=== PATIENT | female | born 1980 | race Caucasian/White ===

== ENCOUNTER → 2017-06-27 | Outpatient (CLI) | payer OTHER | LOC: M SMT 08:14 | PROVIDERS: ATTEND Obstetrics & Gynecology | DX: Z32.01 Encounter for pregnancy test, result positive (principal) ==

== ENCOUNTER → 2017-06-29 | Outpatient (CLI) | payer OTHER | LOC: M SMT 08:08 | PROVIDERS: ATTEND Obstetrics & Gynecology | DX: Z32.01 Encounter for pregnancy test, result positive (principal) ==

== ENCOUNTER → 2017-08-13 | Outpatient (CLI) | payer OTHER ==
[2017-08-13 21:06] LABS: BASO % 0.5 % (0.0-1.0); EOS # 0.1 10^3/uL (0.0-0.50); EOS % 2.2 % (0.0-3.0); IMMATURE GRANULOCYTE % 0.3 % (0-0); LYMPH # 1.4 10^3/uL (1.5-4.5); LYMPH % 21.5 % (24.0-44.0); MEAN CORPUSCULAR HEMOGLOBIN 31.2 pg (27.0-33.0); MEAN CORPUSCULAR HGB CONC 33.5 g/dl (32.0-36.5); MONO # 0.5 10^3/uL (0.0-0.8); MONO % 8.2 % (0.0-5.0); NEUTROPHILS # 4.3 10^3/uL (1.8-7.7); NEUTROPHILS % 67.3 % (36.0-66.0); PLATELET COUNT, AUTOMATED 178 10^3/uL (150-450); WHITE BLOOD COUNT 6.4 10^3/uL (4.0-10.0)
[2017-08-15 11:07] LABS: HBsAg Prenatal NEGATIVE (NEGATIVE)
== END ==
LOC: M LRY 16:15
PROVIDERS: ATTEND Obstetrics & Gynecology
DX: Z34.81 Encounter for supervision of other normal pregnancy, first trimester (principal); Z3A.01 Less than 8 weeks gestation of pregnancy

== ENCOUNTER → 2017-09-28 | Outpatient (CLI) | payer OTHER ==
[2017-09-28 13:10] LABS: BASO % 0.4 % (0.0-1.0); EOS # 0.1 10^3/uL (0.0-0.50); EOS % 1.1 % (0.0-3.0); IMMATURE GRANULOCYTE # 0.1 10^3/uL (0-0); IMMATURE GRANULOCYTE % 0.8 % (0-0); LYMPH % 13.4 % (24.0-44.0); MEAN CORPUSCULAR HEMOGLOBIN 30.9 pg (27.0-33.0); MEAN CORPUSCULAR VOLUME 93.9 fl (80.0-96.0); MONO # 0.6 10^3/uL (0.0-0.8); MONO % 7.8 % (0.0-5.0); NEUTROPHILS # 5.8 10^3/uL (1.8-7.7); NEUTROPHILS % 76.5 % (36.0-66.0); PLATELET COUNT, AUTOMATED 119 10^3/uL (150-450); RED CELL DISTRIBUTION WIDTH 13.2 % (11.5-14.5); WHITE BLOOD COUNT 7.6 10^3/uL (4.0-10.0)
== END ==
LOC: M SMT 11:16
DX: D69.6 Thrombocytopenia, unspecified (principal)
CPT/HCPCS: 85025

== ENCOUNTER → 2017-11-01 | Outpatient (CLI) | payer OTHER ==
[2017-11-01 16:23] LABS: BASO % 0.3 % (0.0-1.0); EOS # 0.1 10^3/uL (0.0-0.50); EOS % 0.9 % (0.0-3.0); HEMATOCRIT 36.2 % (36.0-47.0); HEMOGLOBIN 11.8 g/dl (12.0-16.0); IMMATURE GRANULOCYTE # 0.1 10^3/uL (0-0); IMMATURE GRANULOCYTE % 0.9 % (0-0); LYMPH # 0.9 10^3/uL (1.5-4.5); LYMPH % 13.3 % (24.0-44.0); MEAN CORPUSCULAR HEMOGLOBIN 30.6 pg (27.0-33.0); MEAN CORPUSCULAR HGB CONC 32.6 g/dl (32.0-36.5); MEAN CORPUSCULAR VOLUME 93.8 fl (80.0-96.0); MONO # 0.5 10^3/uL (0.0-0.8); MONO % 7.5 % (0.0-5.0); NEUTROPHILS # 5.1 10^3/uL (1.8-7.7); NEUTROPHILS % 77.1 % (36.0-66.0); RED BLOOD COUNT 3.86 10^6/uL (4.00-5.40); RED CELL DISTRIBUTION WIDTH 13.3 % (11.5-14.5); WHITE BLOOD COUNT 6.6 10^3/uL (4.0-10.0)
[2017-11-01 17:31] LABS: PLATELET COUNT, AUTOMATED 92 10^3/uL (150-450)
== END ==
LOC: M SMT 08:10
DX: D69.6 Thrombocytopenia, unspecified (principal)

== ENCOUNTER → 2017-11-23 | Outpatient (CLI) | payer OTHER ==
[2017-11-23 14:17] LABS: HEMATOCRIT 34.5 % (36.0-47.0); HEMOGLOBIN 11.3 g/dl (12.0-16.0); MEAN CORPUSCULAR HEMOGLOBIN 30.3 pg (27.0-33.0); MEAN CORPUSCULAR HGB CONC 32.8 g/dl (32.0-36.5); MEAN CORPUSCULAR VOLUME 92.5 fl (80.0-96.0); PLATELET COUNT, AUTOMATED 108 10^3/uL (150-450); RED BLOOD COUNT 3.73 10^6/uL (4.00-5.40); RED CELL DISTRIBUTION WIDTH 12.9 % (11.5-14.5); WHITE BLOOD COUNT 7.8 10^3/uL (4.0-10.0)
[2017-11-23 14:37] LABS: GLUCOSE CHALLENGE TEST 1 HOUR 76 MG/DL (LESS THAN 140)
== END ==
LOC: M SMT 10:02
DX: O34.211 Maternal care for low transverse scar from previous cesarean delivery (principal)
CPT/HCPCS: 82950

== ENCOUNTER → 2017-12-28 | Outpatient (CLI) | payer OTHER ==
[2017-12-28 14:29] LABS: BASO % 0.4 % (0.0-1.0); EOS # 0.1 10^3/uL (0.0-0.50); HEMATOCRIT 33.2 % (36.0-47.0); HEMOGLOBIN 10.6 g/dl (12.0-15.5); IMMATURE GRANULOCYTE % 0.6 % (0-3.0); LYMPH # 1.1 10^3/uL (1.5-4.5); LYMPH % 13.6 % (24.0-44.0); MEAN CORPUSCULAR HEMOGLOBIN 28.6 pg (27.0-33.0); MEAN CORPUSCULAR HGB CONC 31.9 g/dl (32.0-36.5); MEAN CORPUSCULAR VOLUME 89.7 fl (80.0-96.0); MONO # 0.8 10^3/uL (0.0-0.8); MONO % 10.5 % (0.0-5.0); NEUTROPHILS # 5.8 10^3/uL (1.8-7.7); NEUTROPHILS % 73.9 % (36.0-66.0); PLATELET COUNT, AUTOMATED 137 10^3/uL (150-450); RED CELL DISTRIBUTION WIDTH 12.8 % (11.5-14.5); WHITE BLOOD COUNT 7.8 10^3/uL (4.0-10.0)
== END ==
LOC: M SMT 11:45
DX: D69.6 Thrombocytopenia, unspecified (principal)
CPT/HCPCS: 85025

== ENCOUNTER → 2018-01-28 | Outpatient (CLI) | payer OTHER ==
[2018-01-28 12:19] LABS: BASO % 0.3 % (0.0-1.0); EOS # 0.1 10^3/uL (0.0-0.50); HEMATOCRIT 31.9 % (36.0-47.0); HEMOGLOBIN 10.1 g/dl (12.0-15.5); IMMATURE GRANULOCYTE % 0.9 % (0-3.0); LYMPH # 0.9 10^3/uL (1.5-4.5); MEAN CORPUSCULAR HGB CONC 31.7 g/dl (32.0-36.5); MEAN CORPUSCULAR VOLUME 88.4 fl (80.0-96.0); MONO # 0.7 10^3/uL (0.0-0.8); MONO % 9.4 % (0.0-5.0); NEUTROPHILS # 5.2 10^3/uL (1.8-7.7); NEUTROPHILS % 75.4 % (36.0-66.0); PLATELET COUNT, AUTOMATED 140 10^3/uL (150-450); RED BLOOD COUNT 3.61 10^6/uL (4.00-5.40); RED CELL DISTRIBUTION WIDTH 12.9 % (11.5-14.5); WHITE BLOOD COUNT 6.9 10^3/uL (4.0-10.0)
== END ==
LOC: M SMT 08:12
DX: D69.6 Thrombocytopenia, unspecified (principal)
CPT/HCPCS: 85025

== ENCOUNTER → 2018-02-12 | Outpatient (CLI) | payer OTHER ==
[2018-02-12 13:51] LABS: BASO % 0.3 % (0.0-1.0); EOS % 0.5 % (0.0-3.0); HEMATOCRIT 32.8 % (36.0-47.0); HEMOGLOBIN 10.3 g/dl (12.0-15.5); IMMATURE GRANULOCYTE % 0.5 % (0-3.0); LYMPH % 12.4 % (24.0-44.0); MEAN CORPUSCULAR HGB CONC 31.4 g/dl (32.0-36.5); MEAN CORPUSCULAR VOLUME 86.1 fl (80.0-96.0); MONO # 0.8 10^3/uL (0.0-0.8); MONO % 9.7 % (0.0-5.0); NEUTROPHILS % 76.6 % (36.0-66.0); PLATELET COUNT, AUTOMATED 150 10^3/uL (150-450); RED BLOOD COUNT 3.81 10^6/uL (4.00-5.40); RED CELL DISTRIBUTION WIDTH 13.2 % (11.5-14.5); WHITE BLOOD COUNT 7.9 10^3/uL (4.0-10.0)
== END ==
LOC: M SMT 11:00
DX: D69.3 Immune thrombocytopenic purpura (principal)

== ENCOUNTER → 2018-02-26 | Outpatient (CLI) | payer OTHER ==
[2018-02-26 11:20] LABS: BASO % 0.5 % (0.0-1.0); EOS # 0.1 10^3/uL (0.0-0.50); EOS % 1.1 % (0.0-3.0); HEMATOCRIT 31.3 % (36.0-47.0); HEMOGLOBIN 9.8 g/dl (12.0-15.5); IMMATURE GRANULOCYTE % 0.6 % (0-3.0); LYMPH % 16.3 % (24.0-44.0); MEAN CORPUSCULAR HEMOGLOBIN 26.6 pg (27.0-33.0); MEAN CORPUSCULAR HGB CONC 31.3 g/dl (32.0-36.5); MEAN CORPUSCULAR VOLUME 84.8 fl (80.0-96.0); MONO # 0.6 10^3/uL (0.0-0.8); MONO % 9.3 % (0.0-5.0); NEUTROPHILS # 4.5 10^3/uL (1.8-7.7); NEUTROPHILS % 72.2 % (36.0-66.0); PLATELET COUNT, AUTOMATED 148 10^3/uL (150-450); RED BLOOD COUNT 3.69 10^6/uL (4.00-5.40); RED CELL DISTRIBUTION WIDTH 13.5 % (11.5-14.5); WHITE BLOOD COUNT 6.2 10^3/uL (4.0-10.0)
== END ==
LOC: M SMT 08:06
DX: Z36.89 Encounter for other specified antenatal screening (principal); Z3A.00 Weeks of gestation of pregnancy not specified
CPT/HCPCS: 85025

== ENCOUNTER 2018-03-16 04:50 | Emergency (ER) | payer OTHER | END 2018-03-16 06:30 | disposition home or self-care (01) | LOC: M ED 04:50 | DX: T81.30XA Disruption of wound, unspecified, initial encounter (principal); Y92.9 Unspecified place or not applicable; Y93.9 Activity, unspecified; Z79.899 Other long term (current) drug therapy; Z88.0 Allergy status to penicillin | CPT/HCPCS: 99283 ==

== ENCOUNTER 2019-11-10 11:49 | Emergency (ER) | payer OTHER ==
[~2019-11-10] VITALS: Ht 162.6 cm; Wt 70.9 kg
[~2019-11-10 11:49] MED LIST changes: -CIPR-249 PO; -FLAG500T PO; -GASTROGRAFIN SOLUTION 30ML (Q9963) As Ordered ONE; -ISOVUE-370 76% 100ML VIAL (Q9967) As Ordered ONE; -ZOFR4TAB16 PO
[2019-11-10] MEDS ORDERED: CIPR-249 PO (14:26)
[2019-11-10] MEDS ORDERED: FLAG500T PO (14:28)
[2019-11-10] MEDS ORDERED: ZOFR4TAB16 PO (14:28)
[2019-11-10] MEDS ORDERED: metroNIDAZOLE (FLAGYL) 500 MG TAB PO ONE (14:30)
[2019-11-10] MEDS ORDERED: CIPROFLOXACIN 500 MG TAB PO ONE (14:30)
[2019-11-10 14:34] VITALS: BP 128/83
== END 2019-11-10 14:37 | disposition home or self-care (01) ==
LOC: M ED 11:49
DX: K57.32 Diverticulitis of large intestine without perforation or abscess without bleeding (principal); D69.3 Immune thrombocytopenic purpura; Z88.0 Allergy status to penicillin; Z79.899 Other long term (current) drug therapy

== ENCOUNTER → 2019-11-10 | Outpatient (CLI) | payer OTHER ==
[~2019-11-10] MED LIST: CIPR-249 PO; CLAR10CA3 PO; COLA100C5 PO; FLAG500T PO; GASTROGRAFIN SOLUTION 30ML (Q9963) As Ordered ONE; IBUP1TAB7 PO; ISOVUE-370 76% 100ML VIAL (Q9967) As Ordered ONE; LANS15CA PO; MULTCAP8 PO; NYST1POW9 TOP; PERCOCET PO; PREN1TAB26 PO; PREV15CA18 PO; ZANT150T40 PO; ZOFR4TAB16 PO
--- NOTE | 2019-11-10 11:23 | REP ---
Clinical: Acute right lower quadrant pain. Technique: Axial contrast enhanced images of the pelvis using oral and 100 ml Isovue 370 intravenous contrast material with coronal and sagittal re-formations. Findings: There is an area of asymmetric mucosal thickening with enhancement and inflammatory change along the posterior base of the cecum (images 20 - 35). Findings suggest possible cecal diverticulitis. The terminal ileum and appendix are identified and normal. No bowel obstruction, free air to suggest perforation, or drainable collection/abscess noted. Further evaluation of the pelvic structures demonstrates normal bladder and age-appropriate uterus/adnexa. No pelvic fluid. No significant adenopathy. Abdominal aorta and vasculature appear normal. Osseous structures are intact. Impression: Findings as described above suggest cecal diverticulitis. Normal terminal ileum and appendix identified. Electronically Signed by Alejandro Cavazos MD 11/10/2019 11:15 A
== END ==
LOC: M RAD 09:22
PROVIDERS: ATTEND Internal Medicine Hematology & Oncology
DX: R10.31 Right lower quadrant pain (principal)
CPT/HCPCS: 72193; Q9963; Q9967

== ENCOUNTER → 2019-11-20 | Outpatient (REF) | payer OTHER ==
[~2019-11-20] MED LIST changes: +CIPR-249 PO; +FLAG500T PO; +ZOFR4TAB16 PO
== END ==
LOC: M LAB REF 12:22
PROVIDERS: ATTEND Registered Nurse
DX: K57.92 Diverticulitis of intestine, part unspecified, without perforation or abscess without bleeding (principal)

== ENCOUNTER → 2019-12-03 | Outpatient (REF) | payer OTHER | LOC: M PLALAB 10:25 | PROVIDERS: ATTEND Obstetrics & Gynecology | DX: Z12.4 Encounter for screening for malignant neoplasm of cervix (principal); B37.9 Candidiasis, unspecified | CPT/HCPCS: 87624; G0123 ==

== ENCOUNTER → 2021-07-14 | Outpatient (CLI) | payer OTHER ==
[~2021-07-14] MED LIST changes: +OMEP-221 PO; -PREV15CA18 PO; +PREV15CA24 PO; +VITMTA PO
== END ==
LOC: M LABSMTC 10:20
PROVIDERS: ATTEND Anesthesiology
DX: Z01.812 Encounter for preprocedural laboratory examination (principal); Z20.822 Contact with and (suspected) exposure to COVID-19

== ENCOUNTER 2021-07-19 06:39 | Day surgery (SDC) | payer OTHER ==
[~2021-07-19] VITALS: Ht 162.6 cm; Wt 68.5 kg
[~2021-07-19 06:39] MED LIST changes: +NS 1,000 ML IV ONE
--- OUTSIDE RECORDS SUMMARY | 2021-07-19 06:43 | CCD | Continuity of Care Document ---
Author Author Dee DAVILA Organization Unknown Address [address] [address] Phone [phone] Care Team Providers Care New Car Sales Manager Name Role Phone Bárbara Davila AUTM [phone] Problems Description No Information Available Social History Type Date Description Comments Sex Unknown ETOH Use Occasionally consumes alcohol Tobacco Use Start: Unknown Patient has never smoked Allergies and adverse reactions Active Allergies Criticality Reaction | Severity Comments Date Penicillins Unable to assess criticality Contact dermatitis 02/02/2017 Medications Active Medications SIG Qnty Indications Ordering Provide r Date Omeprazole 40mg Capsules DR 1 by mouth every day 90caps MARSHALL Cruz JR 021 Multivitamin Gummies Womens Chewt abs 1 by mouth every day LAURIE Segovia 11/23/2017 Claritin 10mg Tablets 1 by mouth every day 90tabs LAURIE Segovia 11/23/2017 Ventolin HFA 108(90Base) mcg/Act A erosol 2 puffs every 4 hours as needed for shortness of breath, or cough 3units J45.20 LAURIE Segovia 11/23/2017 Immunizations CPT Code Status Date Vaccine Lot # U-Flu Given 08/11/2020 Influenza,Unspecified Vital Signs Date Vital Result Comment 02/08/2021 9:34am BP Systolic 122 mmHg BP Diastolic 70 mmHg Heart Rate 72 /min Height 64.25 inches 5'4.25" Weight 154.00 lb BMI (Body Mass Index) 26.2 kg/m2 11/01/2020 1:40pm BP Systolic 108 mmHg RT Arm BP Diastolic 60 mmHg RT Arm Heart Rate 96 /min Height 64.25 inches 5'4.25" Weight 155.00 lb BMI (Body Mass Index) 26.4 kg/m2 Results Test Acquired Date Facility Test Result H/L Range Note Coronavirus 2019 Nasopharygeal 07/14/2021 [address] [place] [address] [phone] Coronavirus 2019 Nasopharygeal ASSAY INFORMATIO <SEE N OTE> 1 1 ASSAY INFORMATION: Real Time RT-PCR NOTE: The COVID-19 assay has been cleared by the U.S. Food and Drug Administration under the Emergency Use Authorization (EUA). [facility] are designated as high complexity laboratories by the Clinical Laboratory Improvement Amendments of 1988(CLIA) and are qualified to perform this test. Not Detected Procedures Date Code Description Status 02/08/2021 46584 Office/Outpatient Established Mo d MDM 30-39 Min Completed 02/08/2021 05166 EKG/Interpretation & Report Comp leted 02/22/2017 [id number] Mammogram Completed Medical Devices Description No Information Available Encounters Type Date Location Provider Dx Diagnosis Office Visit 02/08/2021 9:40a [facility] Beny MARSHALL Mcduffie JR K21.9 Gastro-esophageal reflux dis ease without esophagitis R10.13 Epigastric pain R11.0 Nausea R14.0 Abdominal distension (gaseou s) Assessments Date Code Description Provider 02/08/2021 K21.9 Gastro-esophageal reflux disease without esophagitis MARSHALL Cruz JR 02/08/2021 R10.13 Epigastric pain MARSHALL Cortez JR 02/08/2021 R11.0 Nausea MARSHALL Cortez JR 02/08/2021 R14.0 Abdominal distension (gaseous) R MARSHALL Perez JR Plan of Treatment Future Appointment(s):* 11/04/2021 7:40 am - Lab Schedule at [facility] * 11/07/2021 8:00 am - LAURIE Novoa at [facility] 02/08/2021 - MARSHALL Cruz JR* K21.9 Gastro-esophageal reflux disease without esophagitis* Comments:* Will trial 40mg Omeprazole daily, refer for endoscopy, decrease caffeine and wine consumption, increase PO fluids, continue vegetables and lean meats, RTC PRN after endoscopy, possible residual COVID side effect * R10.13 Epigastric pain* Comments:* EKG pending dictation, appeared NSR on wet read * R11.0 Nausea* Comments:* Advised omeprazole, recommendations above, endoscopy ordered * R14.0 Abdominal distension (gaseous)* Comments:* gas x prn, consider colonoscopy in future if symptoms do not resolve, refer Dr Rich * All * New Medication:* Omeprazole 40 mg - 1 by mouth every day Functional Status Description No Information Available Mental Status Description No Information Available Referrals Refer to Reason for Referral Status Appt Date Tushar Rich MD CONSULT FOR SCREENING EGD DX: GERD, VO MITING Patient Notified 03/21/2021 [facility] [address], [address] [place] [address] [phone]
--- OUTSIDE RECORDS SUMMARY | 2021-07-19 06:43 | CCD ---
Author Author [facility] Organization [facility] Address Unknown Phone Unavailable Care Team Providers Care Skid [employer] Worker Name Role Phone Lola, Bárbara RAIL TRACK LAYER Unavailable Unavailable Lola, Bárbara RAIL TRACK LAYER Unavailable Unavailable Lola, Bárbara RAIL TRACK LAYER Unavailable Unavailable Lola, Bárbara RAIL TRACK LAYER Unavailable Unavailable Lola, Bárbara RAIL TRACK LAYER Unavailable Unavailable Lola, Bárbara RAIL TRACK LAYER Unavailable Unavailable Lola, Bárbara RAIL TRACK LAYER Unavailable Unavailable Lola, Bárbara RAIL TRACK LAYER Unavailable Unavailable Lola, Bárbara RAIL TRACK LAYER Unavailable Unavailable Lola, Bárbara RAIL TRACK LAYER Unavailable Unavailable Lola, Ábrbara RAIL TRACK LAYER Unavailable Unavailable Lola, Bárbara RAIL TRACK LAYER Unavailable Unavailable Lola, Bárbara RAIL TRACK LAYER Unavailable Unavailable Lola, Bárbara RAIL TRACK LAYER Unavailable Unavailable Lola, Bárbara RAIL TRACK LAYER Unavailable Unavailable Lola, Bárbara RAIL TRACK LAYER Unavailable Unavailable Lola, Bárbara RAIL TRACK LAYER Unavailable Unavailable Lola, Bárbara RAIL TRACK LAYER Unavailable Unavailable Lola, Bárbara RAIL TRACK LAYER Unavailable Unavailable Lola, Bárbara RAIL TRACK LAYER Unavailable Unavailable Lola, Bárbara RAIL TRACK LAYER Unavailable Unavailable Lola, Bárbara RAIL TRACK LAYER Unavailable Unavailable Lola, Bárbara RAIL TRACK LAYER Unavailable Unavailable Lola, Bárbara RAIL TRACK LAYER Unavailable Unavailable Lola, Bárbara RAIL TRACK LAYER Unavailable Unavailable Lola, Bárbara RAIL TRACK LAYER Unavailable Unavailable Lola, Bárbara RAIL TRACK LAYER Unavailable Unavailable Lola, Bárbara RAIL TRACK LAYER Unavailable Unavailable Lola, Bárbara RAIL TRACK LAYER Unavailable Unavailable Lola, Bárbara RAIL TRACK LAYER Unavailable Unavailable Lola, Bárbara RAIL TRACK LAYER Unavailable Unavailable Lola, Bárbara RAIL TRACK LAYER Unavailable Unavailable Lola, Bárbara RAIL TRACK LAYER Unavailable Unavailable Lola, Bárbara RAIL TRACK LAYER Unavailable Unavailable Lola, Bárbara RAIL TRACK LAYER Unavailable Unavailable SHAYE, O JAYDON MD Unavailable Unavailable SHAYE, O JAYDON MD Unavailable Unavailable SHAYE, O JAYDON MD Unavailable Unavailable SHAYE, O JAYDON MARTINEZ Unavailable Unavailable SHAYE, O JAYDON MARTINEZ Unavailable Unavailable SHAYE, O JAYDON MARTINEZ Unavailable Unavailable SHAYE, O JAYDON MARTINEZ Unavailable Unavailable SHAYE, O JAYDON MARTINEZ Unavailable Unavailable SHAYE, O JAYDON MARTINEZ Unavailable Unavailable SHAYE, O JAYDON MARTINEZ Unavailable Unavailable SHAYE, O JAYDON MARTINEZ Unavailable Unavailable SHAYE, O JAYDON MARTINEZ Unavailable Unavailable SHAYE, O JAYDON MARTINEZ Unavailable Unavailable SHAYE, O JAYDON MARTINEZ Unavailable Unavailable SHAYE, O JAYDON MARTINEZ Unavailable Unavailable SHAYE, O JAYDON MARTINEZ Unavailable Unavailable SHAYE, O JAYDON MARTINEZ Unavailable Unavailable SHAYE, O JAYDON MARTINEZ Unavailable Unavailable SHAYE, O JAYDON MARTINEZ Unavailable Unavailable SHAYE, O JAYDON MARTINEZ Unavailable Unavailable SHAYE, O JAYDON MARTINEZ Unavailable Unavailable SHAYE, O JAYDON MARTINEZ Unavailable Unavailable SHAYE, O JAYDON MARTIENZ Unavailable Unavailable SHAYE, O JAYDON MARTINEZ Unavailable Unavailable SHAYE, O JAYDON MARTINEZ Unavailable Unavailable SHAYE, O JAYDON MARTINEZ Unavailable Unavailable SHAYE, O JAYDON MARTINEZ Unavailable Unavailable SHAYE, O JAYDON MARTINEZ Unavailable Unavailable SHAYE, O JAYDON MARTINEZ Unavailable Unavailable SHAYE, O JAYDON MARTINEZ Unavailable Unavailable SHAYE, O JAYDON MARTINEZ Unavailable Unavailable SHAYE, O JAYDON MARTINEZ Unavailable Unavailable SHAYE, O JAYDON MARTINEZ Unavailable Unavailable SHAYE, O JAYDON MARTINEZ Unavailable Unavailable SHAYE, O JAYDON MARTINEZ Unavailable Unavailable SHAYE, O JAYDON MARTINEZ Unavailable Unavailable SHAYE, O JAYDON MARTINEZ Unavailable Unavailable SHAYE, O JAYDON MARTINEZ Unavailable Unavailable SHAYE, O JAYDON MARTINEZ Unavailable Unavailable SHAYE, O JAYDON MARTINEZ Unavailable Unavailable SHAYE, O JAYDON MARTINEZ Unavailable Unavailable SHAYE, O JAYDON MARTINEZ Unavailable Unavailable SHAYE, O JAYDON MARTINEZ Unavailable Unavailable PICKERAL JR, J JAYDON PA-C Unavailable Unavailable PICKERAL JR, J JAYDON PA-C Unavailable Unavailable PICKERAL JR, J JAYDON PA-C Unavailable Unavailable PICKERAL JR, J JAYDON PA-C Unavailable Unavailable PICKERAL JR, J JAYDON PA-C Unavailable Unavailable PICKERAL JR, J JAYDON PA-C Unavailable Unavailable PICKERAL JR, J JAYDON PA-C Unavailable Unavailable PICKERAL JR, J JAYDON PA-C Unavailable Unavailable PICKERAL JR, J JAYDON PA-C Unavailable Unavailable PICKERAL JR, J JAYDON PA-C Unavailable Unavailable PICKERAL JR, J JAYDON PA-C Unavailable Unavailable PICKERAL JR, J JAYDON PA-C Unavailable Unavailable PICKERAL JR, J JAYDON PA-C Unavailable Unavailable PICKERAL JR, J JAYDON PA-C Unavailable Unavailable PICKERAL JR, J JAYDON PA-C Unavailable Unavailable PICKERAL JR, J JAYDON PA-C Unavailable Unavailable PICKERAL JR, J JAYDON PA-C Unavailable Unavailable PICKERAL JR, J JAYDON PA-C Unavailable Unavailable PICKERAL JR, J JAYDON PA-C Unavailable Unavailable PICKERAL JR, J JAYDON PA-C Unavailable Unavailable PICKERAL JR, J JAYDON PA-C Unavailable Unavailable PICKERAL JR, J JAYDON PA-C Unavailable Unavailable PICKERAL JR, J JAYDON PA-C Unavailable Unavailable PICKERAL JR, J JAYDON PA-C Unavailable Unavailable PICKERAL JR, J JAYDON PA-C Unavailable Unavailable PICKERAL JR, J JAYDON PA-C Unavailable Unavailable PICKERAL JR, J JAYDON PA-C Unavailable Unavailable Re-disclosure Warning The records that you are about to access may contain information from federally-assisted alcohol or drug abuse programs. If such information is present, then the following federally mandated warning applies: This information has been disclosed to you from records protected by federal confidentiality rules (42 CFR part 2). The federal rules prohibit you from making any further disclosure of this information unless further disclosure is expressly permitted by the written consent of the person to whom it pertains or as otherwise permitted by 42 CFR part 2. A general authorization for the release of medical or other information is NOT sufficient for this purpose. The Federal rules restrict any use of the information to criminally investigate or prosecute any alcohol or drug abuse patient.The records that you are about to access may contain highly sensitive health information, the redisclosure of which is protected by Article 27-F of the [place] State Public Health law. If you continue you may have access to information: Regarding HIV / AIDS; Provided by facilities licensed or operated by the [facility] Office of Mental Health; or Provided by the [facility] Office for People With Developmental Disabilities. If such information is present, then the following [facility] mandated warning applies: This information has been disclosed to you from confidential records which are protected by state law. State law prohibits you from making any further disclosure of this information without the specific written consent of the person to whom it pertains, or as otherwise permitted by law. Any unauthorized further disclosure in violation of state law may result in a fine or senior care sentence or both. A general authorization for the release of medical or other information is NOT sufficient authorization for further disc losure. Family History Family Member Name Family Member Gender Family Member Status Date o f Status Description Data Source(s) Unknown Unknown Problem [facility] ([facility]) Unknown Unknown Problem [facility] ([facility] Encounters Encounter Providers Location Date Indications Data Source(s ) Outpatient Attender: JAYDON Zhu/Mariam/Robbi/Ava indfaisal 03/21/2021 09:45:00 AM EDT [facility] ([facility], ) Outpatient Attender: JAYDON Jacobson 0 02/08/2021 09:40:00 AM EDT [facility] ([facility] ) Outpatient Attender: Bárbara Jacobson 12:40:00 PM EST [facility] ([facility] ) Immunizations Vaccine Date Status Description Data Source(s) COVID-19 VACCINE Moderna 10/28/2020 12:00:00 AM EST completed [facility] Vaccine Series Complete: NOThis Data was Submitted to [facility] Via [facility]. This CVX code allows reporting of a vacc ination when formulation is unknown (for example, when recording a Influenza vaccination when noted on a vaccination card) 08/11/2020 12:11:00 PM EST completed [facility] T ([facility]) INFLUENZA VIRUS VACCINE QUADRIVALENT 2019- (6 MOS AN D UP) 08/11/2020 12:00:00 AM EST completed [facility] Medications Medication Brand Name Start Date Product Form Dose Route Admi nistrative Instructions Pharmacy Instructions Status Indications Reaction Description Data Source(s) 40 mg 02/08/2021 12:00:00 AM EDT capsule,delayed release (DR/EC) 90 TAKE ONE CAPSULE BY MOUTH EVERY DAY TAKE ONE CAPSULE BY MOUTH EVERY DAY SOLD: 05/13/2021 [facility] Omeprazole 40 MG Delayed Release Oral Capsule Omeprazole 02/08/2021 12:00:00 AM EDT ORAL active [facility] ([facility]) 40 mg 02/08/2021 12:00:00 AM EDT capsule,delayed release (DR/EC) 90 TAKE ONE CAPSULE BY MOUTH EVERY DAY TAKE ONE CAPSULE BY MOUTH EVERY DAY SOLD: 02/15/2021 [facility] . UNIT 08/11/2020 12:00:00 AM EST Injectable 1 AD M FEE ADM FEE SOLD: 08/29/2020 [employer] Insurance Providers Payer name Policy type / Coverage type Policy ID Covered green party ID Covered green party's relationship to alanis Policy Alanis Plan Information [employer] [id number] SP [id number] [employer] U [id number] Self [id number] [employer] U [id number] Self [id number] R [id number] Self [id number] r (New [employer]) Commercial [id number] Self [id number] [facility] [id number] SP [id number] [facility] [id number] SP [id number] [employer] PPO O [id number] S [id number] [employer] (HMO) [id number] Self [id number] [employer] Commercial [id number] Self [id number] [employer] (HMO) [id number] Self [id number] [employer] Commercial [id number] Self [id number] [employer] Commercial [id number] Self [id number] [employer] Commercial [id number] Self [employer] O [id number] S [id number] [employer] O [id number] S [id number] [employer] O [id number] S [id number] [employer]-O/P [id number] 18 [id number] [facility] [id number] SP [id number] [employer] (Old) [facility] Part B [id number] Self [id number] [employer] [id number] SP [id number] [employer] (Old) Commercial [id number] Self [id number] [employer] (HMO) [id number] Self [id number] [facility] [employer] Commercial [id number] Self [id number] Problems, Conditions, and Diagnoses No Information Surgeries/Procedures Procedure Description Date Indications Data Source(s) OFFICE OUTPATIENT VISIT 25 MINUTES 03/21/2021 12:00:00 AM EDT [facility] ([facility], ) ECG ROUTINE ECG W/LEAST 12 LDS W/I&R 02/08/2021 12:00: 00 AM EDT [facility] ([facility]) OFFICE OUTPATIENT VISIT 25 MINUTES 02/08/2021 12:00:00 AM EDT [facility] ([facility]) Results ID Date Data Source [id number] 07/14/2021 10:15:00 AM EDT [facility] ([facility]) Name Value Range Interpretation Code Description Data Rena rce(s) Supporting Document(s) Coronavirus 2019 Nasopharygeal Laboratory test result [facility] ASSAY INFORMATION: Real Time RT-PCR NOTE: The COVID-19 assay has been cleared by the U.S. Food and Drug Administration under the Emergency Use Authorization (EUA). [facility] and [facility] are designated as high complexity laboratories by the Clinical Laboratory Improvement Amendments of 1988(CLIA) and are qualified to perform this test. Not Detected ID Date Data Source [id number] 10/29/2020 08:18:00 AM EST [facility] ([facility]) Name Value Range Interpretation Code Description Data Rena rce(s) Supporting Document(s) Cholesterol [Mass/volume] in Serum or Plasma 161 mg/dL 131-200 [facility] ([facility]) Triglyceride [Mass/volume] in Serum or Plasma 65 mg/dL 30-150 [facility] ([facility]) Cholesterol in HDL [Mass/volume] in Serum or Plasma 56 mg/dL 35-60 [facility] ([facility]) Cholesterol in LDL [Mass/volume] in Serum or Plasma by calcu lation 92 CALC 50-159 [facility] ([facility]) ID Date Data Source [id number] 10/29/2020 08:18:00 AM EST [facility] Name Value Range Interpretation Code Description Data Rena rce(s) Supporting Document(s) Glucose [Mass/volume] in Serum or Plasma 87 mg/dL 74-99 [facility] ([facility]) 100-125 mg/dL PRE-DIABETES/FASTING >126 mg/dL DIABETES/FASTING Urea nitrogen [Mass/volume] in Serum or Plasma 14 mg/dL 7-18 [facility] ([facility]) Creatinine 0.6 mg/dL 0.6-1.3 [facility] Sodium [Moles/volume] in Serum or Plasma 139 meq/L 136-145 [facility] ([facility]) Chloride [Moles/volume] in Serum or Plasma 101 meq/L 98-107 [facility] ([facility]) Potassium [Moles/volume] in Serum or Plasma 3.8 meq/L 3.5-5.1 [facility] ([facility]) Carbon dioxide, total [Moles/volume] in Serum or Plasma 28 meq/L 21 -32 [facility] ([facility]) Calcium [Mass/volume] in Serum or Plasma 8.7 mg/dL 8.5-10.1 [facility] ([facility]) Alkaline phosphatase isoenzyme [Units/volume] in Serum or Pl asma 68 mg/dL 46-116 [facility] ([facility]) Aspartate aminotransferase [Enzymatic activity/volume] in Serum or Plasma 14 U/L 15-37 [facility] ([facility] ) Total Bilirubin 1.0 mg/dL 0.2-1.0 [facility] ([facility]) Alanine aminotransferase [Enzymatic activity/volume] in Seru m or Plasma 22 U/L 12-78 [facility] ([facility]) Albumin [Mass/volume] in Serum or Plasma 3.9 g/dL 3.4-5.0 [facility] ([facility]) Proteinase 3 Ab [Units/volume] in Serum 7.1 g/dL 6.4-8.2 [facility] ([facility]) A/G Ratio 1.22 CALC 1.00-1.90 [facility]) Glomerular filtration rate/1.73 sq M pre dicted among non-blacks [Volume Rate/Area] in Serum or Plasma by Creatinine-based formula (MDRD) Laboratory test result [facility] Glomerular filtration rate/1.73 sq M pre dicted among blacks [Volume Rate/Area] in Serum or Plasma by Creatinine-based formula (MDRD) Laboratory test result [facility] ([facility]) <content>CHRONIC KIDNEY DISEASE STAGING PER NKF</content>
<content></content>
<content>STAGE I & II GFR >= 60 NORMAL TO MILDLY DECREASED</content>
<content>STAGE III GFR 30-59 MODERATELY DECREASED</content>
<content>STAGE IV GFR 15-29 SEVERELY DECREASED</content>
<content>STAGE V GFR <15 VERY LITTLE GFR LEFT</content>
<content>ESRD GFR <15 ON PIPE CONNECTOR</content>
<content></content> ID Date Data Source [id number] 10/29/2020 08:18:00 AM EST [facility] ([facility]) Name Value Range Interpretation Code Description Data Rena rce(s) Supporting Document(s) Leukocytes [#/volume] in Blood by Automated count 5.1 x10*3/UL 4.1-10 .9 [facility] ([facility]) Hemoglobin [Mass/volume] in Blood 13.2 g/dL 12.0-18.0 [facility] ([facility]) Erythrocytes [#/volume] in Blood by Automated count 4.29 x10*6/UL 4.2 0-6.30 [facility] ([facility]) Hematocrit [Volume Fraction] of Blood by Automated count 37.6 % 3 7.0-51.0 [facility] ([facility]) MCH 30.7 pg 26.0-32.0 [facility] MCV 87.6 fL 80.0-97.0 [facility] MCHC 35.1 g/dL 31.0-38.0 [facility] Erythrocyte distribution width [Ratio] by Automated count 12.1 % 11.6-13.7 [facility] ([facility]) MPV 9.8 FL 7.8-11.0 [facility]) Platelets [#/volume] in Blood by Automated count 82 x10*3/UL 140-440 [facility] ([facility]) Lymph % 12.5 % 10.0-58.5 [facility] Neut % 83.9 % 37.0-92.0 [facility] Mid % 3.6 % 1.7-9.3 [facility] Mid # 0.2 x10*3/UL 0.1-0.6 [facility] ([facility]) Lymph # 0.6 x10*3/UL 0.6-4.1 [facility] ([facility]) Neut # 4.3 x10*3/UL 2.0-7.8 [facility] ([facility]) ID Date Data Source [id number] 10/02/2020 12:00:00 AM EST [facility] Name Value Range Interpretation Code Description Data Erna rce(s) Supporting Document(s) SARS-CoV2 Rapid Antigen [facility] This lab [facility] by [facility] and reported by [facility]. ID Date Data Source [id number] 08/23/2020 12:00:00 AM EST [facility] Name Value Range Interpretation Code Description Data Rena rce(s) Supporting Document(s) SARS-CoV2 Rapid Antigen [facility] This lab was ordered by [facility] and reported by [facility]. Procedure Social History No Information Vital Signs ID Date Data Source UNK Name Value Range Interpretation Code Description Data Source(s) Body weight 68.947 kg 68.947 kg [facility] ([facility]) Systolic blood pressure 120 mm[Hg] 120 mm[Hg] [facility] ([facility]) Diastolic blood pressure 56 mm[Hg] 56 mm[Hg] [facility] ([facility]) Body height 64 [in_i] 64 [in_i] [facility] ([facility]) 5'4" Body weight 152.00 [lb_av] 152.00 [lb_av] [facility] ([facility]) Body mass index (BMI) [Ratio] 26.1 kg/m2 26.1 k g/m2 [facility] ([facility]) [place] body weight 120 [lb_av] 120 [lb_av] [facility] Body surface area Derived from formula 1.74 m2 1.74 m2 [facility] ([facility]) Systolic blood pressure 122 mm[Hg] 122 mm[Hg] [facility] Diastolic blood pressure 70 mm[Hg] 70 mm[Hg] [facility] ([facility]) Heart rate 72 /min 72 /min [facility] ([facility]) Body height 64.25 [in_i] 64.25 [in_i] [facility] 5'4.25" Body weight 154.00 [lb_av] 154.00 [lb_av] [facility] ([facility]) Body mass index (BMI) [Ratio] 26.2 kg/m2 26.2 k g/m2 [facility] ([facility]) Systolic blood pressure 108 mm[Hg] 108 mm[Hg] [facility] ([facility]) RT Arm Diastolic blood pressure 60 mm[Hg] 60 mm[Hg] [facility] ([facility]) RT Arm Heart rate 96 /min 96 /min [facility] ([facility]) Body height 64.25 [in_i] 64.25 [in_i] [facility] 5'4.25" Body weight 155.00 [lb_av] 155.00 [lb_av] PRANAY Curiel ([facility]) Body mass index (BMI) [Ratio] 26.4 kg/m2 26.4 k g/m2 [facility] ([facility])
[2021-07-19] MEDS ORDERED: fentaNYL 100 MCG/2 ML INJECTION (J3010) As Ordered ONE (07:49)
[2021-07-19] MEDS ORDERED: propofoL 500 MG/50 ML VIAL As Ordered ONE (07:49)
[2021-07-19] MEDS ORDERED: LIDOCAINE 2% 100MG/5ML SDV (FOR ANES.) As Ordered ONE (07:49)
--- NOTE | 2021-07-19 07:55 | ROOR ---
Patient Name: Dee Daly Procedure Date: 07/19/2021 7:36 AM Date of : 1980 Age: 41 Room: [facility] Gender: Female Note Status: Finalized Procedure: Upper GI endoscopy Indications: Suspected esophageal reflux, Nausea Providers: Tushar Rich MD Referring MD: Bárbara Davila NP Requesting Provider: Medicines: Monitored Anesthesia Care Complications: No immediate complications. Procedure: Pre-Anesthesia Assessment: - Prior to the procedure, a History and Physical was performed, and patient medications and allergies were reviewed. The patient is competent. The risks and benefits of the procedure and the sedation options and risks were discussed with the patient. All questions were answered and informed consent was obtained. Patient identification and proposed procedure were verified by the physician, the nurse and the anesthesiologist in the procedure room. Mental Status Examination: alert and oriented. Airway Examination: normal oropharyngeal airway and neck mobility. Prophylactic Antibiotics: The patient does not require prophylactic antibiotics. Prior Anticoagulants: The patient has taken no previous anticoagulant or antiplatelet agents. ASA Grade Assessment: II - A patient with mild systemic disease. After reviewing the risks and benefits, the patient was deemed in satisfactory condition to undergo the procedure. The anesthesia plan was to use monitored anesthesia care (MAC). Immediately prior to administration of medications, the patient was re-assessed for adequacy to receive sedatives. The heart rate, respiratory rate, oxygen saturations, blood pressure, adequacy of pulmonary ventilation, and response to care were monitored throughout the procedure. The physical status of the patient was re-assessed after the procedure. The Endoscope was introduced through the mouth, and advanced to the second part of duodenum. The upper GI endoscopy was accomplished without difficulty. The patient tolerated the procedure well. Findings: The examined esophagus was normal. The entire examined stomach was normal. The first portion of the duodenum and second portion of the duodenum were normal. Impression: - Normal esophagus. - Normal stomach. - Normal first portion of the duodenum and second portion of the duodenum. - No specimens collected. Recommendation: - Discharge patient to home. - Resume previous diet. - Continue present medications. Procedure Code(s): --- Professional --- 49060, Esophagogastroduodenoscopy, flexible, transoral; diagnostic, including collection of specimen(s) by brushing or washing, when performed (separate procedure) Diagnosis Code(s): --- Professional --- R11.0, Nausea CPT copyright 2019 [employer]. All rights reserved. The codes documented in this report are preliminary and upon cutter and edge trimmer review may be revised to meet current compliance requirements. Tushar Rich MD Tushar Rich MD 07/19/2021 7:55:14 AM Electronically signed by Tushar Rich MD Number of Addenda: 0 Note Initiated On: 07/19/2021 7:36 AM Estimated Blood Loss: Estimated blood loss: none.
[2021-07-19 08:10] VITALS: BP 115/79
== END 2021-07-19 08:15 | disposition home or self-care (01) ==
LOC: M OPP 06:39
PROVIDERS: ATTEND Surgery
DX: R11.0 Nausea (principal); D69.3 Immune thrombocytopenic purpura; Z88.0 Allergy status to penicillin
CPT/HCPCS: 43235; J3010

== ENCOUNTER → 2022-02-11 | Outpatient (CLI) | payer OTHER ==
[~2022-02-11] MED LIST changes: +ALBU8.5H INH; +FLUTISP; -NS 1,000 ML IV ONE; +OMEP-173 PO; -OMEP-221 PO; +OMEP40CA5 PO; +PRED20TA PO
== END ==
LOC: M LABSMTC 10:33
PROVIDERS: ATTEND Anesthesiology
DX: Z01.812 Encounter for preprocedural laboratory examination (principal); Z20.822 Contact with and (suspected) exposure to COVID-19

== ENCOUNTER 2022-02-16 06:14 | Observation (INO) | payer OTHER ==
[~2022-02-16] VITALS: Ht 162.6 cm; Wt 70.3 kg
[2022-02-16] VITALS (8 sets, daily range): BP systolic 107–133; BP diastolic 57–73
[~2022-02-16 06:14] MED LIST changes: +LIDOCAINE 1% MDV 20ML VIAL SQ PRN
[2022-02-16] MEDS ORDERED: CLINDAMYCIN 600 MG in IV 1 EA IV ONE ×2 (06:25→15:00)
[2022-02-16] MEDS ORDERED: LR 1,000 ML IV ONE (06:25)
[2022-02-16] MEDS ORDERED: BUPIVACAINE HCL 0.25% 10ML VIAL As Ordered ONE (07:13)
[2022-02-16] MEDS ORDERED: GENTAMICIN SULF 80MG/2ML VIAL As Ordered ONE (07:13)
[2022-02-16] MEDS ORDERED: BUPIVACAINE LIPOSOME/PF 1.3% 20ML VIAL (13.3MG/ML)(EXPAREL) As Ordered ONE (07:13)
[2022-02-16] MEDS ORDERED: fentaNYL 250 MCG/5 ML INJECTION As Ordered ONE (07:14)
[2022-02-16] MEDS ORDERED: ROCURONIUM BROMIDE 50 MG/5 ML VIAL As Ordered ONE ×3 (07:14→09:47)
[2022-02-16] MEDS ORDERED: propofoL 200 MG/20 ML VIAL As Ordered ONE (07:14)
[2022-02-16] MEDS ORDERED: MIDAZOLAM INJ 2MG/2ML VIAL (J2250 PER 1MG) As Ordered ONE ×2 (07:14→07:35)
[2022-02-16] MEDS ORDERED: LIDOCAINE 2% 100MG/5ML SDV (FOR ANES.) As Ordered ONE (07:14)
[2022-02-16] MEDS ORDERED: SCOPOLAMINE 1MG TRANSDERMAL PATCH TOP ONE (07:25)
[2022-02-16 07:27] LABS: HEMATOCRIT 39.6 % (36.0-47.0); MEAN CORPUSCULAR HEMOGLOBIN 31.3 pg (27.0-33.0); MEAN CORPUSCULAR HGB CONC 32.8 g/dl (32.0-36.5); MEAN CORPUSCULAR VOLUME 95.4 fl (80.0-96.0); PLATELET COUNT, AUTOMATED 207 10^3/uL (150-450); RED BLOOD COUNT 4.15 10^6/uL (4.00-5.40); WHITE BLOOD COUNT 7.6 10^3/uL (4.0-10.0)
[2022-02-16] MEDS ORDERED: LACRILUBE (AKWA TEARS) OPHTH OINT 3.5 GM As Ordered ONE (07:49)
[2022-02-16] MEDS ORDERED: ONDANSETRON 4MG/2ML VIAL As Ordered ONE (08:42)
[2022-02-16] MEDS ORDERED: METOCLOPRAMIDE INJ 10MG/2ML VIAL (J2765 PER 1) As Ordered ONE (08:42)
[2022-02-16] MEDS ORDERED: KETOROLAC 60MG 2ML VIAL As Ordered ONE (08:42)
[2022-02-16] MEDS ORDERED: dexameTHASONE 4 MG/ML 1ML VIAL (J1100 PER 1MG) As Ordered ONE (08:42)
[2022-02-16] MEDS ORDERED: ACETAMINOPHEN 1000MG 100ML IV BTL (OFIRMEV) (J0131 PER 10MG) As Ordered ONE (08:43)
[2022-02-16] MEDS ORDERED: HYDROmorphone HCL 2MG/ML 1ML VIAL As Ordered ONE (10:11)
[2022-02-16] MEDS ORDERED: SUGAMMADEX SODIUM 500 MG/5 ML VIAL (BRIDION) As Ordered ONE (10:48)
[2022-02-16] MEDS ORDERED: ACETAMINOPHEN TAB 650MG DOSE (2X325MG) PO PRN (11:15)
[2022-02-16] MEDS ORDERED: ONDANSETRON 4MG/2ML VIAL IV PRN ×2 (11:15→11:45)
[2022-02-16] MEDS ORDERED: oxyCODONE 5MG TAB PO PRN (11:45)
[2022-02-16] MEDS ORDERED: LR 1,000 ML IV SCH (11:45)
[2022-02-16] MEDS ORDERED: HYDROMORPHONE HCL 0.5 MG/ 0.5 ML SYRINGE (J1170 PER 1) IV PRN (11:45)
[2022-02-16] MEDS ORDERED: fentaNYL 100 MCG/2 ML INJECTION IV PRN (11:45)
[2022-02-16] MEDS ORDERED: METOCLOPRAMIDE INJ 10MG/2ML VIAL (J2765 PER 1) IV PRN (11:45)
[2022-02-16] MEDS: LR 1,000 ML IV SCH (13:19)
[2022-02-16] MEDS: PERCOCET 5MG/325MG TAB PO PRN ×2 (14:19→20:13)
[2022-02-17] VITALS: BP 106/59
[2022-02-17] MEDS: LR 1,000 ML IV SCH (01:55)
[2022-02-17] MEDS: PERCOCET 5MG/325MG TAB PO PRN ×2 (02:35→08:58)
[2022-02-17 04:00] VITALS: BP 111/57
[2022-02-17 09:00] VITALS: BP 115/60
[2022-02-17] MEDS ORDERED: PERCOCET PO (10:15)
== END 2022-02-17 12:00 | disposition home or self-care (01) ==
LOC: M SDC 06:14 → M PED 06:15
PROVIDERS: ADMIT Surgery; ATTEND Plastic Surgery Surgery of the Hand
DX: N62 Hypertrophy of breast (principal); K21.9 Gastro-esophageal reflux disease without esophagitis; D69.3 Immune thrombocytopenic purpura; Z79.52 Long term (current) use of systemic steroids; Z79.51 Long term (current) use of inhaled steroids; Z79.899 Other long term (current) drug therapy; Z88.0 Allergy status to penicillin
CPT/HCPCS: 19318; 36415; 85027; 88305; 96361; 96365; C9290; J0131; J1100; J1170; J1580; J1885; J2250; J2405; J2765; J3010

== ENCOUNTER → 2022-10-03 | Outpatient (REF) | payer OTHER ==
[~2022-10-03] MED LIST changes: -LIDOCAINE 1% MDV 20ML VIAL SQ PRN
== END ==
LOC: M PLALAB 09:09
PROVIDERS: ATTEND Obstetrics & Gynecology
DX: Z01.419 Encounter for gynecological examination (general) (routine) without abnormal findings (principal)
CPT/HCPCS: 87624; G0123

== ENCOUNTER → 2022-10-03 | Outpatient (CLI) | payer OTHER | LOC: M WHC 08:03 | PROVIDERS: ATTEND Obstetrics & Gynecology | DX: Z12.31 Encounter for screening mammogram for malignant neoplasm of breast (principal) ==

== ENCOUNTER → 2023-01-02 | Outpatient (CLI) | payer OTHER ==
[~2023-01-02] MED LIST changes: +FLUT50SP17; -FLUTISP; +GASTROGRAFIN SOLUTION 30ML As Ordered ONE; +ISOVUE-370 76% 100ML VIAL As Ordered ONE
== END ==
LOC: M RAD 08:27
PROVIDERS: ATTEND Physician Assistant Medical
DX: R11.0 Nausea (principal); R14.0 Abdominal distension (gaseous)
CPT/HCPCS: 74177; Q9963; Q9967

== ENCOUNTER → 2023-11-19 | Outpatient (CLI) | payer OTHER ==
[~2023-11-19] MED LIST changes: -FLUT50SP17; +FLUTISP; -GASTROGRAFIN SOLUTION 30ML As Ordered ONE; -ISOVUE-370 76% 100ML VIAL As Ordered ONE
== END ==
LOC: M WHC 15:08
PROVIDERS: ATTEND Obstetrics & Gynecology
DX: Z12.31 Encounter for screening mammogram for malignant neoplasm of breast (principal)

== ENCOUNTER → 2023-11-19 | Outpatient (REF) | payer OTHER | LOC: M PLALAB 16:32 | PROVIDERS: ATTEND Obstetrics & Gynecology | DX: Z01.419 Encounter for gynecological examination (general) (routine) without abnormal findings (principal); R87.610 Atypical squamous cells of undetermined significance on cytologic smear of cervix (ASC-US) | CPT/HCPCS: 87624; G0123 ==

== ENCOUNTER → 2023-11-30 | Outpatient (CLI) | payer OTHER | LOC: M WHC 07:34 | PROVIDERS: ATTEND Obstetrics & Gynecology | DX: N93.9 Abnormal uterine and vaginal bleeding, unspecified (principal) ==

== ENCOUNTER → 2024-12-09 | Outpatient (CLI) | payer OTHER ==
[~2024-12-09] MED LIST changes: +NYST1POW3 TOP; -NYST1POW9 TOP
== END ==
LOC: M WHC 13:25
PROVIDERS: ATTEND Obstetrics & Gynecology
DX: Z12.31 Encounter for screening mammogram for malignant neoplasm of breast (principal); R92.323 Mammographic fibroglandular density, bilateral breasts

== ENCOUNTER → 2024-12-09 | Outpatient (REF) | payer OTHER | LOC: M SFHCWAGY 16:00 | PROVIDERS: ATTEND Obstetrics & Gynecology | DX: Z01.419 Encounter for gynecological examination (general) (routine) without abnormal findings (principal) | CPT/HCPCS: 87624; G0123 ==

== ENCOUNTER 2025-06-11 06:53 | Day surgery (SDC) | payer OTHER ==
[~2025-06-11] VITALS: Ht 162.6 cm; Wt 54.4 kg
[~2025-06-11 06:53] MED LIST changes: +PHEN15CA6 PO; +PHEN30CA21 PO; +THERTAB52 PO
[2025-06-11] MEDS ORDERED: LIDOCAINE 2% 100 MG/5 ML SDV (FOR ANES.) As Ordered ONE (07:29)
[2025-06-11 08:10] VITALS: BP 115/70; O2SAT 100
== END 2025-06-11 08:13 | disposition home or self-care (01) ==
LOC: M OPP 06:53
PROVIDERS: ATTEND Surgery
DX: K57.30 Diverticulosis of large intestine without perforation or abscess without bleeding (principal); K64.2 Third degree hemorrhoids; K59.00 Constipation, unspecified; Z88.0 Allergy status to penicillin; Z79.51 Long term (current) use of inhaled steroids; Z79.899 Other long term (current) drug therapy